=== PATIENT | male | born 1995 | race Hispanic/Latino ===

== ENCOUNTER 2019-10-12 20:56 | Emergency (ER) | payer OTHER ==
[2019-10-12] MEDS ORDERED: HYDROcodone/Acetaminophen 5/325 mg Tablet ONE (21:19)
[2019-10-12] MEDS ORDERED: Silver Sulfadiazine 50 GM TUBE ONE (21:19)
[2019-10-12] MEDS ORDERED: Ibuprofen 200 MG TAB ONE (21:19)
[2019-10-12] MEDS ORDERED: Adacel (T-DAP) 0.5 ML SYRINGE ONE (21:19)
== END 2019-10-12 21:55 | disposition home or self-care (01) ==
LOC: ERS 20:56
DX: T23.321A Burn of third degree of single right finger (nail) except thumb, initial encounter (principal); T23.221A Burn of second degree of single right finger (nail) except thumb, initial encounter; X08.8XXA Exposure to other specified smoke, fire and flames, initial encounter
CPT/HCPCS: 90715

== ENCOUNTER 2024-12-18 12:29 | Observation (INO) | payer SELFPAY ==
[2024-12-18] MEDS ORDERED: Bupivacaine 0.25% HCL 30 ML VIAL ONE (13:30)
[2024-12-18] MEDS ORDERED: Famotidine/PF 20 mg/2ml Vial ONE (13:38)
[2024-12-18] MEDS ORDERED: fentaNYL PF 100 MCG/2 ML SYRINGE ONE (13:41)
[2024-12-18] MEDS ORDERED: PROPOFOL 20 ML ONE (13:41)
[2024-12-18] MEDS ORDERED: Lidocaine 1% PF 5 ML VIAL ONE ×2 (13:47→14:37)
[2024-12-18] MEDS ORDERED: SUCCINYLCHOLINE/SOD CL,ISO/PF 200 MG/10 ML SYRINGE FS ONE (13:48)
[2024-12-18] MEDS ORDERED: Rocuronium Bromide 10 MG/ML (10ML VIAL) ONE (13:57)
[2024-12-18] MEDS ORDERED: Glycopyrrolate 0.2 MG/ML 5 ML SYRINGE ONE (13:57)
[2024-12-18] MEDS ORDERED: Ondansetron PF 4 MG/2 ML Vial ONE (14:10)
[2024-12-18] MEDS ORDERED: Ketorolac Tromethamine 30 MG (1 mL) VIAL ONE (14:35)
[2024-12-18] MEDS ORDERED: SUGAMMADEX SODIUM 200 MG/2 ML VIAL ONE (14:42)
[2024-12-18] MEDS ORDERED: Acetaminophen 325 MG TAB PO PRN (14:57)
[2024-12-18] MEDS ORDERED: hydrALAZINE 20 MG/ML VIAL SLOW IVP PRN (14:57)
[2024-12-18] MEDS ORDERED: Calcium Carbonate 500 MG ChewTAB PO PRN (14:57)
[2024-12-18] MEDS ORDERED: Ondansetron PF 4 MG/2 ML Vial IVP PRN (14:57)
[2024-12-18] MEDS ORDERED: Dextrose 50% Abboject 50 ML SYRINGE SLOW IVP PRN (14:57)
[2024-12-18] MEDS ORDERED: Glucagon 1 MG/ML KIT IM PRN (14:57)
[2024-12-18] MEDS ORDERED: Mag-Al 1200 mg/1200 mg/30 ML UDCUP PO PRN (14:57)
[2024-12-18] MEDS: HYDROcodone/Acetaminophen 10/325 mg Tablet PO PRN (17:23)
[2024-12-18 17:35] VITALS: BP 136/86; TEMP 98.5
[2024-12-18 17:36] VITALS: BMI 29.5
[2024-12-18] MEDS ORDERED: Famotidine/PF 20 mg/2ml Vial SLOW IVP SCH (21:00)
[2024-12-18] MEDS ORDERED: Famotidine 20 MG TAB PO SCH (21:00)
== END 2024-12-18 17:57 | disposition home or self-care (01) ==
LOC: SDC 12:29 → SURG B 15:16
PROVIDERS: ADMIT Colon & Rectal Surgery; ATTEND Colon & Rectal Surgery
PROC: 0DTJ4ZZ Resection of Appendix, Percutaneous Endoscopic Approach (ICD-10-PCS; principal; 2024-12-18)
DX: K35.30 Acute appendicitis with localized peritonitis, without perforation or gangrene (principal); F17.200 Nicotine dependence, unspecified, uncomplicated
CPT/HCPCS: 88304; A4649; J0169; J0665; J1100; J1308; J1885; J2405; J2704; J3010; J7120